=== PATIENT | female | born 1960 | race Asian ===

== ENCOUNTER 2022-10-12 11:40 | Inpatient (IN) | payer BC ==
[~2022-10-12] VITALS: Ht 154.9 cm; Wt 46.3 kg
[~2022-10-12 11:40] MED LIST: LIDOCAINE HCL/EPINEPHRINE 1%-EPI 1:100,000 20 ML VIAL ONE; POLYMYXIN B SULFATE 500000 UNITS/VIAL ONE; VANCOMYCIN HCL 1 GM/VIAL ONE
[2022-10-12] MEDS ORDERED: LACTATED RINGERS 1,000 ML IV ONE (12:00)
[2022-10-12] MEDS ORDERED: DEXAMETHASONE 4MG/ML 1ML VIAL ONE (13:38)
[2022-10-12] MEDS ORDERED: ROCURONIUM BROMIDE 10MG/ML VIAL 5ML IV ONE (13:38)
[2022-10-12] MEDS ORDERED: SUCCINYLCHOLINE CHLORIDE 200MG/10ML IV ONE (13:38)
[2022-10-12] MEDS ORDERED: ONDANSETRON HCL 4MG/2ML INJ ONE (13:38)
[2022-10-12] MEDS ORDERED: LIDOCAINE HCL 1% 10 MG/ML 10ML VIAL ONE (13:38)
[2022-10-12] MEDS ORDERED: PROPOFOL 200MG/20ML VIAL IV ONE (13:39)
[2022-10-12] MEDS ORDERED: MIDAZOLAM HCL 2 MG/2 ML VIAL ONE (13:39)
[2022-10-12] MEDS ORDERED: FENTANYL CITRATE/PF 50MCG/ML 2ML VIAL ONE (13:39)
[2022-10-12] MEDS ORDERED: ONDANSETRON HCL 4MG/2ML INJ IV PRN ×3 (14:00→18:45)
[2022-10-12] MEDS ORDERED: HYDROCODONE/ACETAMINOPHEN 5/325MG TABLET PO PRN ×2 (14:00)
[2022-10-12] MEDS ORDERED: HYDROMORPHONE HCL/PF 2MG/ML CPJ IV PRN ×2 (14:00→16:45)
[2022-10-12] MEDS ORDERED: POLYMYXIN B SULFATE 500000 UNITS/VIAL ONE ×2 (14:13→14:28)
[2022-10-12] MEDS ORDERED: KETOROLAC 30MG/ML VIAL ONE (14:16)
[2022-10-12] MEDS ORDERED: EPINEPHRINE 1:1000 1 MG/ML AMP ONE (14:17)
[2022-10-12] MEDS ORDERED: TRANEXAMIC ACID 1,000 MG in SODIUM CHLORIDE 0.9% 100 ML IV NR (14:30)
[2022-10-12] MEDS ORDERED: CEFAZOLIN SODIUM 1000MG/VIAL ONE (14:53)
[2022-10-12] MEDS ORDERED: HYDROMORPHONE HCL/PF 2MG/ML CPJ ONE ×2 (14:53→16:49)
[2022-10-12] MEDS ORDERED: MEPERIDINE HCL/PF 25MG/ML CPJ IV PRN (16:45)
[2022-10-12] MEDS ORDERED: LABETALOL 5MG/ML SYR 20 MG/4 ML SYRINGE IV PRN (16:45)
[2022-10-12] MEDS ORDERED: ZOLPIDEM TARTRATE 5MG TABLET PO PRN (18:45)
[2022-10-12] MEDS ORDERED: CLONIDINE 0.1MG TABLET PO PRN (18:45)
[2022-10-12] MEDS ORDERED: ACETAMINOPHEN 325MG TABLET PO PRN ×2 (18:45)
[2022-10-12] MEDS ORDERED: MAGNESIUM HYDROXIDE 400MG/5ML 30ML UDC PO PRN (18:45)
[2022-10-12] MEDS ORDERED: DIPHENHYDRAMINE 50MG/ML VIAL IV PRN (18:45)
[2022-10-12] MEDS ORDERED: MAGNESIUM/ALUMINUM HYDROXIDE/SIMETHICONE 30ML UDC PO PRN (18:45)
[2022-10-12 20:00] VITALS: BP 119/65; PULSE 78; RESP 18; TEMP 96.3
[2022-10-12] MEDS ORDERED: FAMOTIDINE 20MG TABLET PO SCH (21:00)
[2022-10-12 21:58] LABS: CHLORIDE 111 mEq/L (98-107)
[2022-10-13] MEDS: SODIUM CHLORIDE 0.9% INJ 3ML FLUSH IVF SCH ×2 (00:19→06:01)
[2022-10-13 04:00] VITALS: BP 100/54; PULSE 65; RESP 18; TEMP 97
[2022-10-13] MEDS ORDERED: CEFAZOLIN 1000MG PREMIX 50 ML IV SCH ×3 (06:00→22:00)
[2022-10-13 08:00] VITALS: BP 111/60; PULSE 77; RESP 19; TEMP 97.7
[2022-10-13] MEDS ORDERED: DOCUSATE SODIUM 100MG CAPSULE PO SCH (09:00)
[2022-10-13 11:53] LABS: HEMATOCRIT. 28.3 % (36.0-48.0); HEMOGLOBIN. 9.6 g/dL (12.0-16.0); MEAN CORPUSCULAR HEMOGLOBIN 31.3 pg (28.0-32.0); MEAN CORPUSCULAR VOLUME 92.6 fL (81.0-99.0); MEAN PLATELET VOLUME 6.3 fl (7.4-10.4); PLATELET 243 x1000/uL (130-400); RED BLOOD CELL COUNT 3.06 mill/uL (4.2-5.4); RED CELL DISTRIBUTION WIDTH 12.5 % (11.6-14.6)
[2022-10-13 12:06] LABS: CHLORIDE 109 mEq/L (98-107)
[2022-10-13 12:22] VITALS: BP 100/54; PULSE 65; RESP 20; TEMP 98.1
[2022-10-13 13:06] VITALS: BP 97/57; PULSE 65; TEMP 97.8; O2SAT 99
[2022-10-13 14:21] VITALS: TEMP 97.8
[2022-10-14 13:48] LABS: PLATELET ESTIMATE NORMAL
== END 2022-10-13 15:40 | disposition home health service (06) | DRG 470 ==
LOC: OR 11:40 → 6EST 18:55
PROVIDERS: ATTEND Student in an Organized Health Care Education/Training Program
PROC: 0SR90JZ Replacement of Right Hip Joint with Synthetic Substitute, Open Approach (ICD-10-PCS; principal; 2022-10-12)
DX: M16.11 Unilateral primary osteoarthritis, right hip (principal)
CPT/HCPCS: 36415; 73502; 76000; 80048; 83735; 85025; 86850; 86900; 88305; 88311; 93970; 97110; 97162; J0330; J0690; J1100; J1170; J1885; J2250; J2405; J2704; J3010; J3370; J3490; J7030; J7050; C1713; C1776